=== PATIENT | female | born 1965 | race Caucasian/White ===

== ENCOUNTER 2019-07-15 21:10 | Emergency (ER) | payer BC ==
[~2019-07-15] VITALS: Ht 152.4 cm; Wt 77.3 kg
[2019-07-15] MEDS ORDERED: LIDOCAINE 5% (LIDODERM) PATCH TD ONE (22:00)
[2019-07-15] MEDS ORDERED: LIDO5DIS41 TOP (22:32)
[2019-07-15 22:39] VITALS: BP 161/78
--- NOTE | 2019-07-16 07:37 | REP ---
Clinical: Pain. Technique: AP, lateral, flexion/extension, bilateral oblique and open mouth views of the cervical spine. Findings: No acute fracture / compression injury or subluxation. Advanced degenerative disc osteophyte complex at the C5-6 noted along with mild/moderate degenerative spondylosis throughout the remainder of the examination. Spinal canal remains patent. No spondylolisthesis. Open mouth view demonstrates normal C1-C2 articulation and odontoid process. Facet arthropathy at C5-6 noted on oblique views. Impression: Advanced focal degenerative changes at C5-6. Electronically Signed by Trenton Loredo MD 07/16/2019 07:28 A
--- NOTE | 2019-07-16 07:41 | REP ---
Clinical: Pain. Technique: Internal rotation, external rotation, and Y view of the right shoulder. Findings: Calcified loose bodies suggest calcific tendinopathy. No acute fracture dislocation. Subtle cortical irregularity at the acromioclavicular joint noted. Subacromial space is normal. Impression: Findings to suggest calcific tendinopathy. Electronically Signed by Trenton Loredo MD 07/16/2019 07:32 A
== END 2019-07-15 22:43 | disposition home or self-care (01) ==
LOC: M ED 21:10
DX: M54.12 Radiculopathy, cervical region (principal); M25.511 Pain in right shoulder